=== PATIENT | female | born 1995 | race Caucasian/White ===

== ENCOUNTER 2017-03-05 13:49 | Emergency (ER) | payer MEDICAID ==
[~2017-03-05 13:49] MED LIST: CEPHALEXIN500 MG PO; DICLEGIS DR 101 EACH PO; FLEXERIL10 MG PO; IBUPROFEN800 M1 PO; MACROBID100 MG/CAP PO; MOTRIN800 MG PO; NORCO 7.5/325 T1 TAB PO; PERCOCET 5-3251 EACH PO; PERCOCET 5MG/AP1 TA2 PO; PRENA1 CHEW TA1.4 M1 CH; ZOLOFT50 M1 PO
[2017-03-05] MEDS ORDERED: PROGESTERONE100 M1 PO (14:20)
[2017-03-05 14:41] LABS: BASO % 0.2 % (0-2); EOS % 1.1 % (0-7); EOSINOPHIL ABSOLUTE COUNT 0.1 tho/cmm (0.0-0.7); HCT-HEMATOCRIT 40.9 % (34.0-49.0); HGB-HEMOGLOBIN 14.6 gm/dl (12.0-15.5); IMMATURE GRANULOCYTES ABSOLUTE 0.03 tho/cmm (0-0.03); IMMATURE GRANULOCYTES PERCENT 0.3 % (0-0.3); LYMPH % 12.9 % (20-45); LYMPH ABSOLUTE COUNT 1.4 tho/cmm (0.8-4.5); MCH (MEAN CORPUSCULAR HGB) 29.8 pg (28.0-32.0); MCHC MEAN CORPUSCULAR HGB CONC 35.7 % (32.0-36.0); MCV (MEAN CELL VOLUME) 83.5 fl (82.0-96.0); MEAN PLATELET VOLUME 10.1 cmc (9.4-12.4); MONOCYTE ABSOLUTE COUNT 0.8 tho/cmm (0.0-1.2); NEUTROPHIL ABSOLUTE COUNT 8.8 tho/cmm (1.6-8.0); NEUTROPHIL-AUTOMATED 8.8 tho/cmm (1.6-8.0); NEUTROPHILS % 78.5 % (40-80); PLATELET COUNT 314 tho/cmm (150-450); RED CELL DISTRIBUTION WIDTH 13.3 % (12.4-16.4); WHITE BLOOD COUNT 11.2 tho/cmm (4.0-10.0)
[2017-03-05 15:01] LABS: ANION GAP 15 mmol/L (0-20); BLOOD UREA NITROGEN 11 mg/dl (6-24); CALCIUM 9.6 mg/dl (8.5-10.5); CARBON DIOXIDE-VENOUS 22 mmol/L (22-32); CHLORIDE 105 mmol/l (96-110); CREATININE 0.63 mg/dl (0.50-1.10); GLUCOSE 107 mg/dL (70-110); SODIUM 138 mmol/L (135-145); T4 (THYROXINE) 13.7 ug/dl (5.0-12.6); eGFR VALUE FOR BLACK >90 mL/Min
[2017-03-05 15:03] LABS: POTASSIUM 3.6 mmol/L (3.7-5.1)
[2017-03-05 15:04] LABS: TSH-THYROID STIMULATING HORM. 1.45 uIU/ml (0.40-3.80)
[2017-03-05 15:31] LABS: URINE BILIRUBIN NEGATIVE (NEG); URINE BLOOD MODERATE (NEG); URINE GLUCOSE (UA) NEGATIVE (NEG); URINE KETONE NEGATIVE (NEG); URINE LEUKOCYTE ESTERASE POSITIVE (NEG); URINE NITRITE NEGATIVE (NEG); URINE PROTEIN MODERATE (NEG)
[2017-03-05 15:36] LABS: URINE APPEARANCE CLOUDY; URINE COLOR YELLOW
[2017-03-05 15:49] LABS: URINE BACTERIA 4+; URINE WBC FULL FIELD /[HPF] (0-5)
[2017-03-05 15:50] LABS: URINE RBC 0-1 /[HPF] (0-5)
[2017-03-05] MEDS ORDERED: KEFLEX500 M4 PO (16:38)
== END 2017-03-05 17:10 ==
LOC: EDMED 13:49
PROVIDERS: Emergency Medicine
DX: O23.41 Unspecified infection of urinary tract in pregnancy, first trimester (principal); O26.891 Other specified pregnancy related conditions, first trimester; R07.89 Other chest pain; O99.89 Other specified diseases and conditions complicating pregnancy, childbirth and the puerperium; R00.0 Tachycardia, unspecified; O99.341 Other mental disorders complicating pregnancy, first trimester; F41.9 Anxiety disorder, unspecified; Z3A.01 Less than 8 weeks gestation of pregnancy; Z88.2 Allergy status to sulfonamides; Z98.890 Other specified postprocedural states
CPT/HCPCS: J0696; J7030; Q9967